=== PATIENT | male | born 1975 | race Caucasian/White ===

== ENCOUNTER 2018-04-13 11:32 | Emergency (ER) | payer MEDICAID ==
[~2018-04-13] VITALS: Ht 180.3 cm; Wt 72.8 kg
[~2018-04-13 11:32] MED LIST: ACET325T57 PO; IBUP-1984 PO; NO HOME MEDS
[2018-04-13 11:37] VITALS: BP 136/83
== END 2018-04-13 13:02 | disposition home or self-care (01) ==
LOC: ER 11:32
DX: S09.90XA Unspecified injury of head, initial encounter (principal); G89.29 Other chronic pain; F12.90 Cannabis use, unspecified, uncomplicated; F15.90 Other stimulant use, unspecified, uncomplicated; Z90.49 Acquired absence of other specified parts of digestive tract; Z79.899 Other long term (current) drug therapy; Z56.0 Unemployment, unspecified; W19.XXXA Unspecified fall, initial encounter; Y93.89 Activity, other specified; Y92.89 Other specified places as the place of occurrence of the external cause; Y99.8 Other external cause status
CPT/HCPCS: 99281

== ENCOUNTER 2019-08-24 23:17 | Emergency (ER) | payer MEDICAID ==
[~2019-08-24] VITALS: Ht 172.7 cm; Wt 86.0 kg
[~2019-08-24 23:17] MED LIST changes: +NALO4SPR INH
[2019-08-25] MEDS ORDERED: SULF1TAB49 PO (02:23)
[2019-08-25] MEDS ORDERED: sulfamethoxazole/trimethoprim DS (800/160mg) tablet PO ONE (03:00)
[2019-08-25 03:16] VITALS: BP 122/58
== END 2019-08-25 03:20 | disposition home or self-care (01) ==
LOC: ER 23:17
DX: L02.415 Cutaneous abscess of right lower limb (principal); L03.116 Cellulitis of left lower limb; G89.29 Other chronic pain; F15.90 Other stimulant use, unspecified, uncomplicated; F12.90 Cannabis use, unspecified, uncomplicated; F10.99 Alcohol use, unspecified with unspecified alcohol-induced disorder; Z56.0 Unemployment, unspecified; Z79.899 Other long term (current) drug therapy; Y90.9 Presence of alcohol in blood, level not specified
CPT/HCPCS: 10060; 99283

== ENCOUNTER 2020-11-20 03:06 | Emergency (ER) | payer MEDICAID ==
[~2020-11-20] VITALS: Ht 175.3 cm; Wt 58.0 kg
[2020-11-20 03:21] VITALS: BP 171/102
== END 2020-11-20 05:12 | disposition home or self-care (01) ==
LOC: ER 03:07
DX: T16.1XXA Foreign body in right ear, initial encounter (principal); G89.29 Other chronic pain; F12.90 Cannabis use, unspecified, uncomplicated; F15.90 Other stimulant use, unspecified, uncomplicated; Z90.49 Acquired absence of other specified parts of digestive tract; Z72.89 Other problems related to lifestyle; Z56.0 Unemployment, unspecified; Z79.899 Other long term (current) drug therapy; X58.XXXA Exposure to other specified factors, initial encounter; Y93.89 Activity, other specified; Y92.89 Other specified places as the place of occurrence of the external cause; Y99.8 Other external cause status
CPT/HCPCS: 69200; 99284

== ENCOUNTER 2022-01-08 21:23 | Emergency (ER) | payer MEDICAID ==
[~2022-01-08] VITALS: Ht 180.3 cm; Wt 90.9 kg
[2022-01-08 21:25] VITALS: BP 167/87
== END 2022-01-08 22:12 | disposition left against medical advice (07) ==
LOC: ER 21:24
DX: R68.84 Jaw pain (principal); Z53.21 Procedure and treatment not carried out due to patient leaving prior to being seen by health care provider

== ENCOUNTER 2022-09-06 12:04 | Inpatient (IN) | payer MEDICAID ==
[~2022-09-06] VITALS: Ht 177.8 cm; Wt 86.4 kg
[2022-09-06] VITALS (21 sets, daily range): BP systolic 146–194; BP diastolic 75–115
[2022-09-06] MEDS ORDERED: normal saline 1000ML IV soln IVB ONE (14:00)
[2022-09-06] MEDS ORDERED: morphine 4 MG/ML inj SYRINge IV PRN ×2 (14:00→15:15)
[2022-09-06] MEDS ORDERED: ondansetron/PF 4mg/2ml inj IV ONE (14:00)
[2022-09-06 14:50] LABS: ALANINE AMINOTRANSFERASE 97 U/L (12-78); ALBUMIN 3.6 G/DL (3.4-5.0); ALBUMIN/GLOBULIN RATIO 0.7 (1.1-1.5); ALKALINE PHOSPHATASE 93 IU/L (46-116); ANION GAP 7 (8-16); ASPARTATE AMINO TRANSFERASE 42 U/L (10-37); BILIRUBIN,TOTAL 1.8 MG/DL (0.1-1.0); BLOOD UREA NITROGEN 13 MG/DL (7-18); CALCIUM 8.8 MG/DL (8.5-10.1); CHLORIDE 98 MMOL/L (99-107); CREATININE 0.65 MG/DL (0.60-1.10); GLUCOSE 91 MG/DL (70-104); POTASSIUM 3.3 MMOL/L (3.5-5.1); SODIUM 134 MMOL/L (135-145); TOTAL CARBON DIOXIDE 28.6 MMOL/L (24-32); TOTAL PROTEIN 8.6 G/DL (6.4-8.2); eGFR > 90 ML/MIN
[2022-09-06 14:52] LABS: BASOPHILS # (AUTO) 0.1 X10'3 (0-0.2); BASOPHILS % (AUTO) 0.8 % (0-1); EOSINOPHILS % (AUTO) 0.3 % (0-6); HEMATOCRIT 40.1 % (42.0-52.0); HEMOGLOBIN 13.3 g/dl (14.0-17.9); LYMPHOCYTES # (AUTO) 1.8 X10'3 (1.1-4.8); LYMPHOCYTES % (AUTO) 18.6 % (21-51); MEAN CORPUSCULAR HEMOGLOBIN 29.8 PG (27.0-31.0); MEAN CORPUSCULAR HGB CONC 33.1 g/dL (33.0-36.5); MEAN PLATELET VOLUME 8.2 FL (7.4-10.4); MONOCYTES # (AUTO) 1.3 X10'3 (0-0.9); NEUTROPHILS # (AUTO) 6.3 X10'3 (1.8-7.7); NEUTROPHILS % (AUTO) 66.3 % (42-75); PLATELET COUNT 343 X10'3 (140-440); RED BLOOD COUNT 4.46 X10'6 (4.70-6.10); RED CELL DISTRIBUTION WIDTH 14.4 % (11.5-14.5); WHITE BLOOD COUNT 9.5 X10'3 (4.5-11.0)
[2022-09-06] MEDS ORDERED: magnesium Cl slow-release 64mg tablet PO PRN (15:00)
[2022-09-06] MEDS ORDERED: magnesium hydroxide 30ml (MOM) UD suspension PO PRN (15:00)
[2022-09-06] MEDS ORDERED: potassium Cl 20 mEq SR tablet PO PRN ×2 (15:00)
[2022-09-06] MEDS ORDERED: mag hydrox/Alum hydrox/simeth 30ml oral suspension PO PRN (15:00)
[2022-09-06] MEDS ORDERED: magnesium 4gm in 100ml NS 100 ML IV PRN (15:00)
[2022-09-06] MEDS ORDERED: acetaminophen 325mg tablet PO PRN (15:00)
[2022-09-06] MEDS ORDERED: potassium Cl 40MEQ/1/2NS 520ml 520 ML IV PRN (15:00)
[2022-09-06] MEDS ORDERED: morphine 2 MG/ML inj. syringe IV PRN ×3 (15:00→15:15)
[2022-09-06] MEDS ORDERED: meperidine/PF 25mg/ml syringe IV PRN ×3 (15:15)
[2022-09-06] MEDS ORDERED: ondansetron/PF 4mg/2ml inj IV PRN (15:15)
[2022-09-06] MEDS ORDERED: ringers solution, lacted 1,000 ML IV SCH (15:15)
[2022-09-06] MEDS ORDERED: ketorolac trometh. 30mg/ml inj. IV ONE (15:15)
[2022-09-06] MEDS ORDERED: hydrALAZINE 20mg/ml inj. IV PRN (15:15)
[2022-09-06] MEDS ORDERED: acetaminophen 1,000mg/100ml IV 100 ML IV PRN (15:15)
[2022-09-06] MEDS ORDERED: proCHLORperazine 10 MG/2 ml inj IV PRN (15:15)
[2022-09-06] MEDS ORDERED: vancomycin 1,000mg inj ONE (15:35)
[2022-09-06] MEDS ORDERED: BUPIVAcaine 0.25% w/Epi /PF 30ml vial ONE (15:35)
[2022-09-06] MEDS ORDERED: BUPIVAcaine 0.5% inj/PF 0 ML ONE (15:35)
[2022-09-06] MEDS ORDERED: midazolam 1 mg/ML 2ml injection ONE (15:53)
[2022-09-06] MEDS ORDERED: fentaNYL/PF 50MCG/1 ML 2ML syringe ONE ×2 (15:53→16:28)
[2022-09-06 15:54] LABS: ETHANOL < 0.010 GM/DL (0.0-0.010)
[2022-09-06] MEDS ORDERED: sevoflurane 250ml liquid IH ONE (15:54)
[2022-09-06] MEDS ORDERED: ceFAZolin 1000mg inj ONE ×2 (16:27)
[2022-09-06] MEDS ORDERED: propofol inj 20 ML IV ONE (16:27)
[2022-09-06] MEDS ORDERED: dexamethasone sod phosphate 4mg/ml inj. ONE (16:27)
[2022-09-06] MEDS ORDERED: ondansetron/PF 4mg/2ml inj ONE (16:27)
[2022-09-06] MEDS ORDERED: LIDOcaine 2% (20mg/ml) 5ml vial ONE (16:27)
[2022-09-06] MEDS: labetalol 20mg/4ml (5mg/ml) syringe IV PRN ×2 (17:20→17:40)
[2022-09-06] MEDS: normal saline 1000ml 1,000 ML IV SCH (18:20)
--- NOTE | 2022-09-06 19:08 | NUR ---
PATIENT TAKEN TO ORTHO FLOOR ROOM WITH ALL BELONGINGS AND HOOKED UP TO ALL MONITORS IN ROOM AND REPORT GIVEN TO RN WHO HAS TAKEN OVER PATIENT CARE. Addendum: 09/06/22 at 1924 by Breanna Hermosillo RN Amended: Links added.
[2022-09-06] MEDS: docusate sod 100mg capsule PO SCH (20:00)
[2022-09-07] MEDS: normal saline 1000ml 1,000 ML IV SCH ×3 (01:00→17:21)
[2022-09-07 02:00] VITALS: BP 169/96
[2022-09-07] MEDS: K and/or MAG REPLACEMENT MC SCH ×3 (04:31→20:00)
[2022-09-07 06:00] VITALS: BP 160/94
--- NOTE | 2022-09-07 06:25 | NUR ---
Problems reprioritized. Patient report given, questions answered & plan of care reviewed with BALBINA MICHAEL.
--- NOTE | 2022-09-07 07:02 | NUR ---
Patient in room [facility]. I have received report from ashley norton and had the opportunity to ask questions and assume patient care.
[2022-09-07 07:32] LABS: ANION GAP 7 (8-16); BLOOD UREA NITROGEN 17 MG/DL (7-18); BUN/CREATININE RATIO 23.3 (5.4-32.0); CALCIUM 8.2 MG/DL (8.5-10.1); CHLORIDE 99 MMOL/L (99-107); CREATININE 0.73 MG/DL (0.60-1.10); GLUCOSE 109 MG/DL (70-104); POTASSIUM 4.1 MMOL/L (3.5-5.1); SODIUM 133 MMOL/L (135-145); TOTAL CARBON DIOXIDE 27.4 MMOL/L (24-32); eGFR > 90 ML/MIN
[2022-09-07 07:45] LABS: HEMOGLOBIN 11.7 g/dl (14.0-17.9); LYMPHOCYTES # (AUTO) 1.5 X10'3 (1.1-4.8); MEAN PLATELET VOLUME 9.2 FL (7.4-10.4); MONOCYTES # (AUTO) 1.5 X10'3 (0-0.9); PLATELET COUNT 293 X10'3 (140-440)
[2022-09-07 07:46] LABS: BASOPHILS % (AUTO) 0.3 % (0-1); EOSINOPHILS % (AUTO) 0.1 % (0-6); HEMATOCRIT 35.8 % (42.0-52.0); LYMPHOCYTES % (AUTO) 12.6 % (21-51); MEAN CORPUSCULAR HEMOGLOBIN 29.6 PG (27.0-31.0); MEAN CORPUSCULAR HGB CONC 32.7 g/dL (33.0-36.5); MEAN CORPUSCULAR VOLUME 90.5 FL (78-98); MONOCYTES % (AUTO) 12.8 % (2-12); NEUTROPHILS # (AUTO) 8.7 X10'3 (1.8-7.7); NEUTROPHILS % (AUTO) 74.2 % (42-75); RED BLOOD COUNT 3.95 X10'6 (4.70-6.10); RED CELL DISTRIBUTION WIDTH 14.5 % (11.5-14.5); WHITE BLOOD COUNT 11.7 X10'3 (4.5-11.0)
[2022-09-07] MEDS: docusate sod 100mg capsule PO SCH ×2 (07:48→20:00)
[2022-09-07] MEDS: enoxaparin 40mg/0.4ml syringe SUBCUT SCH (07:49)
[2022-09-07] MEDS ORDERED: enoxaparin 30mg/0.3ml syringe SUBCUT SCH (08:00)
[2022-09-07 10:00] VITALS: BP 150/82
[2022-09-07] MEDS ORDERED: HYDROcodone/acetaminophen 10/325mg tab PO PRN (11:10)
--- NOTE | 2022-09-07 14:13 | NUR ---
PUBLIC HEALTH EPIDEMIOLOGIST documentation: I have reviewed and agree with all interventions, assessments performed and documented by MAEGAN HUGO.
--- NOTE | 2022-09-07 18:35 | NUR ---
Problems reprioritized. Patient report given, questions answered & plan of care reviewed with ARNOLD MORTENSEN.
--- NOTE | 2022-09-07 18:35 | NUR ---
Received report from daysncft nurse.
[2022-09-07] MEDS: ondansetron/PF 4mg/2ml inj IV PRN (19:33)
[2022-09-08] MEDS: ondansetron/PF 4mg/2ml inj IV PRN (01:10)
[2022-09-08] MEDS: normal saline 1000ml 1,000 ML IV SCH ×2 (04:13→17:12)
--- NOTE | 2022-09-08 05:22 | NUR ---
Patient refused for his 1800 VS yesterday and 2200.
[2022-09-08 06:00] VITALS: BP 168/95
--- NOTE | 2022-09-08 06:31 | NUR ---
Patient in room [facility]. I have received report from ARNOLD MORTENSEN and had the opportunity to ask questions and assume patient care.
--- NOTE | 2022-09-08 06:40 | NUR ---
Problems reprioritized. Patient report given, questions answered & plan of care reviewed with Lemuel MORTENSEN..
[2022-09-08 06:54] LABS: ALBUMIN 2.7 G/DL (3.4-5.0); ANION GAP 6 (8-16); BLOOD UREA NITROGEN 10 MG/DL (7-18); BUN/CREATININE RATIO 16.1 (5.4-32.0); CALCIUM 7.9 MG/DL (8.5-10.1); CHLORIDE 100 MMOL/L (99-107); CREATININE 0.62 MG/DL (0.60-1.10); GLUCOSE 91 MG/DL (70-104); MAGNESIUM 1.9 MG/DL (1.5-2.4); POTASSIUM 3.8 MMOL/L (3.5-5.1); SODIUM 132 MMOL/L (135-145); eGFR > 90 ML/MIN
[2022-09-08 07:08] LABS: BASOPHILS # (AUTO) 0.1 X10'3 (0-0.2); BASOPHILS % (AUTO) 0.8 % (0-1); EOSINOPHILS # (AUTO) 0.2 X10'3 (0-0.9); EOSINOPHILS % (AUTO) 1.9 % (0-6); HEMATOCRIT 33.2 % (42.0-52.0); HEMOGLOBIN 11.1 g/dl (14.0-17.9); LYMPHOCYTES # (AUTO) 2.2 X10'3 (1.1-4.8); LYMPHOCYTES % (AUTO) 20.3 % (21-51); MEAN CORPUSCULAR HEMOGLOBIN 30.2 PG (27.0-31.0); MEAN CORPUSCULAR HGB CONC 33.4 g/dL (33.0-36.5); MEAN CORPUSCULAR VOLUME 90.3 FL (78-98); MONOCYTES # (AUTO) 1.4 X10'3 (0-0.9); MONOCYTES % (AUTO) 13.6 % (2-12); NEUTROPHILS # (AUTO) 6.7 X10'3 (1.8-7.7); NEUTROPHILS % (AUTO) 63.4 % (42-75); PLATELET COUNT 294 X10'3 (140-440); RED BLOOD COUNT 3.68 X10'6 (4.70-6.10); RED CELL DISTRIBUTION WIDTH 14.1 % (11.5-14.5); WHITE BLOOD COUNT 10.6 X10'3 (4.5-11.0)
[2022-09-08] MEDS: K and/or MAG REPLACEMENT MC SCH ×2 (08:00→20:00)
[2022-09-08] MEDS: docusate sod 100mg capsule PO SCH ×2 (08:03→20:01)
[2022-09-08] MEDS: enoxaparin 40mg/0.4ml syringe SUBCUT SCH (08:03)
[2022-09-08] MEDS: HYDROcodone/acetaminophen 5mg/325mg tablet PO PRN (08:07)
[2022-09-08 10:00] VITALS: BP 116/72
--- NOTE | 2022-09-08 11:54 | NUR ---
dr monsalve made aware of pts NA being 132.
--- NOTE | 2022-09-08 16:46 | NUR ---
pt doesn't want to be sick from MOM, said i can give him prune juice for now to try with a BM.
[2022-09-08 18:00] VITALS: BP 160/78
--- NOTE | 2022-09-08 18:18 | NUR ---
Problems reprioritized. Patient report given, questions answered & plan of care reviewed with sam norton.
--- NOTE | 2022-09-08 18:35 | NUR ---
Patient in room [facility]. I have received report from BALBINA Hdez and had the opportunity to ask questions and assume patient care.
[2022-09-08 22:00] VITALS: BP 140/83
[2022-09-09] MEDS: normal saline 1000ml 1,000 ML IV SCH ×3 (03:52→23:00)
[2022-09-09 06:00] VITALS: BP 166/84
[2022-09-09 06:22] LABS: ALBUMIN 2.8 G/DL (3.4-5.0); ANION GAP 2 (8-16); BLOOD UREA NITROGEN 7 MG/DL (7-18); BUN/CREATININE RATIO 11.3 (5.4-32.0); CALCIUM 8.2 MG/DL (8.5-10.1); CHLORIDE 100 MMOL/L (99-107); CREATININE 0.62 MG/DL (0.60-1.10); GLUCOSE 102 MG/DL (70-104); MAGNESIUM 1.9 MG/DL (1.5-2.4); POTASSIUM 3.8 MMOL/L (3.5-5.1); SODIUM 131 MMOL/L (135-145); TOTAL CARBON DIOXIDE 29.1 MMOL/L (24-32); eGFR > 90 ML/MIN
--- NOTE | 2022-09-09 06:26 | NUR ---
Problems reprioritized. Patient report given, questions answered & plan of care reviewed with BALBINA Enriquez.
[2022-09-09 06:30] LABS: BASOPHILS # (AUTO) 0.1 X10'3 (0-0.2); BASOPHILS % (AUTO) 1.1 % (0-1); EOSINOPHILS # (AUTO) 0.5 X10'3 (0-0.9); EOSINOPHILS % (AUTO) 4.3 % (0-6); HEMOGLOBIN 10.7 g/dl (14.0-17.9); LYMPHOCYTES # (AUTO) 1.8 X10'3 (1.1-4.8); LYMPHOCYTES % (AUTO) 16.5 % (21-51); MEAN CORPUSCULAR HEMOGLOBIN 30.1 PG (27.0-31.0); MEAN CORPUSCULAR HGB CONC 33.5 g/dL (33.0-36.5); MEAN CORPUSCULAR VOLUME 89.7 FL (78-98); MEAN PLATELET VOLUME 8.7 FL (7.4-10.4); MONOCYTES # (AUTO) 1.3 X10'3 (0-0.9); MONOCYTES % (AUTO) 11.8 % (2-12); NEUTROPHILS # (AUTO) 7.3 X10'3 (1.8-7.7); NEUTROPHILS % (AUTO) 66.3 % (42-75); PLATELET COUNT 316 X10'3 (140-440); RED BLOOD COUNT 3.57 X10'6 (4.70-6.10); RED CELL DISTRIBUTION WIDTH 14.2 % (11.5-14.5); WHITE BLOOD COUNT 11.1 X10'3 (4.5-11.0)
--- NOTE | 2022-09-09 07:11 | NUR ---
Patient in room [facility]. I have received report from BALBINA Patterson and had the opportunity to ask questions and assume patient care.
[2022-09-09] MEDS: K and/or MAG REPLACEMENT MC SCH ×2 (08:00→19:52)
[2022-09-09] MEDS: enoxaparin 40mg/0.4ml syringe SUBCUT SCH (09:49)
[2022-09-09] MEDS: docusate sod 100mg capsule PO SCH ×2 (09:49→20:10)
[2022-09-09] MEDS: HYDROcodone/acetaminophen 5mg/325mg tablet PO PRN (09:50)
[2022-09-09 10:00] VITALS: BP 167/93
[2022-09-09] MEDS ORDERED: HYDR-3965 PO (11:35)
[2022-09-09 18:00] VITALS: BP 171/99
--- NOTE | 2022-09-09 18:31 | NUR ---
Problems reprioritized. Patient report given, questions answered & plan of care reviewed with BALBINA Jean.
[2022-09-09 22:00] VITALS: BP 159/82
[2022-09-10 05:49] LABS: BASOPHILS # (AUTO) 0.1 X10'3 (0-0.2); BASOPHILS % (AUTO) 0.8 % (0-1); EOSINOPHILS # (AUTO) 0.4 X10'3 (0-0.9); EOSINOPHILS % (AUTO) 3.1 % (0-6); HEMATOCRIT 32.6 % (42.0-52.0); HEMOGLOBIN 11.1 g/dl (14.0-17.9); LYMPHOCYTES # (AUTO) 1.6 X10'3 (1.1-4.8); LYMPHOCYTES % (AUTO) 14.6 % (21-51); MEAN CORPUSCULAR HEMOGLOBIN 30.3 PG (27.0-31.0); MEAN CORPUSCULAR VOLUME 89.2 FL (78-98); MEAN PLATELET VOLUME 8.5 FL (7.4-10.4); MONOCYTES # (AUTO) 1.3 X10'3 (0-0.9); MONOCYTES % (AUTO) 11.6 % (2-12); NEUTROPHILS # (AUTO) 7.9 X10'3 (1.8-7.7); NEUTROPHILS % (AUTO) 69.9 % (42-75); PLATELET COUNT 388 X10'3 (140-440); RED BLOOD COUNT 3.66 X10'6 (4.70-6.10); RED CELL DISTRIBUTION WIDTH 14.2 % (11.5-14.5); WHITE BLOOD COUNT 11.3 X10'3 (4.5-11.0)
[2022-09-10 06:00] VITALS: BP 153/83
[2022-09-10 06:00] LABS: ALBUMIN 2.9 G/DL (3.4-5.0); ANION GAP 6 (8-16); BLOOD UREA NITROGEN 8 MG/DL (7-18); BUN/CREATININE RATIO 14.3 (5.4-32.0); CALCIUM 8.7 MG/DL (8.5-10.1); CHLORIDE 97 MMOL/L (99-107); CREATININE 0.56 MG/DL (0.60-1.10); GLUCOSE 97 MG/DL (70-104); MAGNESIUM 1.9 MG/DL (1.5-2.4); POTASSIUM 3.7 MMOL/L (3.5-5.1); SODIUM 131 MMOL/L (135-145); eGFR > 90 ML/MIN
[2022-09-10] MEDS: K and/or MAG REPLACEMENT MC SCH (07:21)
[2022-09-10] MEDS: normal saline 1000ml 1,000 ML IV SCH (09:00)
[2022-09-10] MEDS: docusate sod 100mg capsule PO SCH (09:26)
[2022-09-10] MEDS: enoxaparin 40mg/0.4ml syringe SUBCUT SCH (09:26)
[2022-09-10 10:00] VITALS: BP 149/79
--- NOTE | 2022-09-10 12:08 | NUR ---
Patient in room [facility]. I have received report from Smitha MORTENSEN and had the opportunity to ask questions and assume patient care.
--- NOTE | 2022-09-10 14:30 | NUR ---
PT [place] [facility]. PT IS A [facility] AND IN NO APPARENT DISCOMFORT OTHER THAN MINOR PAIN ON SX SITE WHEN HE WALKS. PT GIVEN A PRINTED [employer] PRESCRIPTION, AND WILL BE DROP OFF BY [facility] AT [facility] ON [address]. ALSO GIVEN BUS PASSES TO TAKE BUS [place]. PT VERBALIZES UNDERSTANDING OF ALL DC ORDERS AND AGREED TO MAKE SURE HE FOLLOWS UP WITH PCP AND DR SALEH. PT GIVEN A LUNCH BAG AND WHEELED TO THE FRONT WHERE T[facility]I TOOK HIM TO [facility].
== END 2022-09-10 14:20 | disposition home or self-care (01) | DRG 308 ==
LOC: ER 12:05 → ED HOLD 15:01 → SUR 3N 19:17
PROVIDERS: ADMIT Family Medicine; ATTEND Family Medicine
PROC: 0QH736Z Insertion of Intramedullary Internal Fixation Device into Left Upper Femur, Percutaneous Approach (ICD-10-PCS; principal; 2022-09-06 15:54)
DX: S72.145A Nondisplaced intertrochanteric fracture of left femur, initial encounter for closed fracture (principal); F15.90 Other stimulant use, unspecified, uncomplicated; F17.210 Nicotine dependence, cigarettes, uncomplicated; I10 Essential (primary) hypertension; G89.29 Other chronic pain; W01.0XXA Fall on same level from slipping, tripping and stumbling without subsequent striking against object, initial encounter; Z56.0 Unemployment, unspecified; Y93.89 Activity, other specified; Y92.89 Other specified places as the place of occurrence of the external cause; Z90.49 Acquired absence of other specified parts of digestive tract; Y99.8 Other external cause status
CPT/HCPCS: 36415; 71045; 73502; 76000; 80048; 80053; 80320; 83735; 85025; 85610; 86885; 86900; 86901; 87081; 97116; 97161; 97530; 99285; A4215; A4618; A6222; A6449; A6455; A7000; C1713; G0378; J0131; J0690; J1100; J1650; J1885; J2175; J2250; J2270; J2405; J2704; J3010; J3370; J3490; J7030; J7060; J7120; S0020

== ENCOUNTER 2022-10-15 17:56 | Emergency (ER) | payer MEDICAID ==
[~2022-10-15] VITALS: Ht 180.3 cm; Wt 86.4 kg
[2022-10-15] MEDS ORDERED: NALO4SPR BOTHNARES (19:06)
[2022-10-15 19:09] LABS: ALANINE AMINOTRANSFERASE 59 U/L (12-78); ALBUMIN 3.3 G/DL (3.4-5.0); ALBUMIN/GLOBULIN RATIO 0.6 (1.1-1.5); ALKALINE PHOSPHATASE 154 IU/L (46-116); ANION GAP 8 (8-16); ASPARTATE AMINO TRANSFERASE 30 U/L (10-37); BILIRUBIN,TOTAL 0.4 MG/DL (0.1-1.0); BLOOD UREA NITROGEN 17 MG/DL (7-18); BUN/CREATININE RATIO 19.8 (5.4-32.0); CHLORIDE 104 MMOL/L (99-107); CREATININE 0.86 MG/DL (0.60-1.10); ETHANOL < 0.010 GM/DL (0.0-0.010); GLUCOSE 139 MG/DL (70-104); POTASSIUM 3.3 MMOL/L (3.5-5.1); SODIUM 141 MMOL/L (135-145); TOTAL CARBON DIOXIDE 29.4 MMOL/L (24-32); TOTAL PROTEIN 8.4 G/DL (6.4-8.2); eGFR > 90 ML/MIN
[2022-10-15] MEDS ORDERED: normal saline 1000ml 1,000 ML IV ONE (19:15)
[2022-10-15 19:26] LABS: EOSINOPHILS # (AUTO) 0.2 X10'3 (0-0.9); HEMOGLOBIN 11.4 g/dl (14.0-17.9); LYMPHOCYTES # (AUTO) 1.2 X10'3 (1.1-4.8); MEAN CORPUSCULAR VOLUME 88.4 FL (78-98); MONOCYTES # (AUTO) 0.8 X10'3 (0-0.9); NEUTROPHILS # (AUTO) 4.3 X10'3 (1.8-7.7)
[2022-10-15 19:28] LABS: BASOPHILS # (AUTO) 0.2 X10'3 (0-0.2); BASOPHILS % (AUTO) 2.7 % (0-1); EOSINOPHILS % (AUTO) 2.3 % (0-6); HEMATOCRIT 34.8 % (42.0-52.0); LYMPHOCYTES % (AUTO) 17.8 % (21-51); MEAN CORPUSCULAR HGB CONC 32.8 g/dL (33.0-36.5); MEAN PLATELET VOLUME 8.6 FL (7.4-10.4); NEUTROPHILS % (AUTO) 65.2 % (42-75); PLATELET COUNT 535 X10'3 (140-440); RED BLOOD COUNT 3.94 X10'6 (4.70-6.10); RED CELL DISTRIBUTION WIDTH 14.9 % (11.5-14.5); WHITE BLOOD COUNT 6.7 X10'3 (4.5-11.0)
[2022-10-15 21:04] LABS: TOTAL CELLS COUNTED 100
[2022-10-15 21:05] LABS: PLATELET ESTIMATE INCREASED
[2022-10-15] MEDS ORDERED: POTASSIUM BICARB 20meq eff tab 20 MEQ TABLET.EFF PO STA (22:18)
[2022-10-15 23:13] VITALS: BP 133/76
== END 2022-10-16 00:02 | disposition home or self-care (01) ==
LOC: ER 17:57
DX: T48.1X1A Poisoning by skeletal muscle relaxants [neuromuscular blocking agents], accidental (unintentional), initial encounter (principal); R41.82 Altered mental status, unspecified; Y92.89 Other specified places as the place of occurrence of the external cause; F12.10 Cannabis abuse, uncomplicated; F15.10 Other stimulant abuse, uncomplicated; G89.29 Other chronic pain; M54.9 Dorsalgia, unspecified; Z90.49 Acquired absence of other specified parts of digestive tract; Z88.5 Allergy status to narcotic agent; Z79.899 Other long term (current) drug therapy
CPT/HCPCS: 36415; 71045; 80053; 80320; 82948; 85007; 85025; 93005; 96360; 99285; J7030; A4615

== ENCOUNTER 2023-07-13 05:55 | Emergency (ER) | payer MEDICAID ==
[~2023-07-13] VITALS: Ht 180.3 cm; Wt 86.4 kg
[~2023-07-13 05:55] MED LIST changes: -ACET325T57 PO; -IBUP-1984 PO; +NALO4SPR BOTHNARES; -NALO4SPR INH; -NO HOME MEDS
[2023-07-13 05:59] VITALS: BP 164/96; PULSE 79; RESP 18; TEMP 97.9; O2SAT 100
[2023-07-13] MEDS ORDERED: KEN0.1O TOP (06:59)
[2023-07-13] MEDS ORDERED: VITA113O5 (06:59)
== END 2023-07-13 07:24 | disposition home or self-care (01) ==
LOC: ER 05:55
DX: S90.822A Blister (nonthermal), left foot, initial encounter (principal); S90.821A Blister (nonthermal), right foot, initial encounter; F15.90 Other stimulant use, unspecified, uncomplicated; F12.90 Cannabis use, unspecified, uncomplicated; Z88.8 Allergy status to other drugs, medicaments and biological substances; Z79.899 Other long term (current) drug therapy; Z98.890 Other specified postprocedural states; X58.XXXA Exposure to other specified factors, initial encounter; Y93.89 Activity, other specified; Y92.89 Other specified places as the place of occurrence of the external cause; Y99.8 Other external cause status
CPT/HCPCS: 99283